=== PATIENT | female | born 1965 | race Two or more races ===

== ENCOUNTER 2023-01-29 13:36 | Emergency (ER) | payer OTHER ==
[~2023-01-29] VITALS: Ht 157.5 cm; Wt 81.0 kg
[2023-01-29 13:44] VITALS: TEMP 98.3
[2023-01-29] MEDS ORDERED: METF-1211 PO (13:47)
[2023-01-29] MEDS ORDERED: LOSA-382 PO (13:47)
[2023-01-29] MEDS ORDERED: HYDROCODONE/ACETAMINOPHEN 5-325 MG TABLET PO ONE (15:30)
[2023-01-29] MEDS ORDERED: LIDOCAINE 5% TRANSDERMAL PATCH TD ONE (15:30)
[2023-01-29 17:01] LABS: APPEARANCE,URINE CLEAR (CLEAR); BILIRUBIN,URINE NEGATIVE (NEGATIVE); COLOR,URINE YELLOW (YELLOW); GLUCOSE, URINE (UA) NEGATIVE (NEGATIVE); KETONES,URINE NEGATIVE (NEGATIVE); LEUKOCYTE ESTERASE ,URINE NEGATIVE (NEGATIVE); NITRATE,URINE NEGATIVE (NEGATIVE); OCCULT BLOOD,URINE NEGATIVE (NEGATIVE); PH,URINE 5.5 (5.0-8.0); PROTEIN,URINE TRACE mg/dL (NEGATIVE); SPECIFIC GRAVITIY, URINE 1.031 (1.003-1.030); UROBILINOGEN,URINE <=1.0 mg/dL (<=1.0)
[2023-01-29] MEDS ORDERED: LIDO700A15 TP (17:29)
[2023-01-29] MEDS ORDERED: CYCL-448 PO (17:29)
[2023-01-29 17:38] VITALS: BP 141/87; PULSE 61; RESP 19
== END 2023-01-29 17:48 | disposition home or self-care (01) ==
LOC: EMS 13:39
DX: M54.50 Low back pain, unspecified (principal); E11.9 Type 2 diabetes mellitus without complications; I10 Essential (primary) hypertension; Z98.890 Other specified postprocedural states
CPT/HCPCS: 72100; 81003; 96372; 99284

== ENCOUNTER 2023-12-02 18:59 | Emergency (ER) | payer OTHER ==
[~2023-12-02] VITALS: Ht 149.9 cm; Wt 70.0 kg
[~2023-12-02 18:59] MED LIST: CYCL-448 PO; LIDO700A15 TP; LOSA-382 PO; METF-1211 PO
[2023-12-02 19:03] VITALS: TEMP 98
[2023-12-02] MEDS: ONDANSETRON HCL 4 MG/2 ML VIAL IVP ONE (19:25)
[2023-12-02] MEDS: GLUCAGON,HUMAN RECOMBINANT 1 MG VIAL IVP ONE (19:25)
[2023-12-02 20:06] LABS: BASOPHILS % (AUTO) 0.5 % (0.0-2.0); EOSINOPHILS % (AUTO) 3.9 % (1.0-6.0); HEMATOCRIT 36.3 % (36-46); HEMOGLOBIN 12.2 g/dL (12.0-16.0); LYMPHOCYTES # (AUTO) 1.9 K/uL (1.0-4.8); LYMPHOCYTES % (AUTO) 19.9 % (22.0-44.0); MEAN CORPUSCULAR HEMOGLOBIN 29.7 pg (26.0-34.0); MEAN CORPUSCULAR HGB CONC 33.8 G/dL (31.0-37.0); MEAN CORPUSCULAR VOLUME 88 fL (80-100); MONOCYTES # (AUTO) 0.8 K/uL (0.1-1.0); MONOCYTES % (AUTO) 8.4 % (2.0-9.0); NEUTROPHILS # (AUTO) 6.5 K/uL (1.8-7.7); NEUTROPHILS % (AUTO) 67.3 % (40.0-70.0); PLATELET COUNT (AUTO) 338 K/uL (150-450); RED BLOOD CELL COUNT(AUTO) 4.12 MIL/uL (4.00-5.20); RED CELL DISTRIBUTION WIDTH 13.1 % (11.5-14.5); WHITE BLOOD COUNT (AUTO) 9.6 K/uL (4.5-11.0)
[2023-12-02 20:15] LABS: ANION GAP 11 mmol/L (8-16); CALCIUM, TOTAL 8.6 mg/dL (8.8-10.5); CARBON DIOXIDE 25 mmol/L (22-29); CHLORIDE 105 mmol/L (98-107); CREATININE 0.81 mg/dL (0.60-1.30); GLOMERULAR FILTR. RATE CALC > 60 mL/min (>60); GLUCOSE,RANDOM 170 mg/dL (70-110); SODIUM SERUM 141 mmol/L (136-145); UREA NITROGEN, BLOOD 22 mg/dL (7-18)
[2023-12-02 20:19] LABS: POTASSIUM 2.9 mmol/L (3.5-5.1)
[2023-12-02] MEDS: POTASSIUM CHLORIDE 20 MEQ ER TABLET PO ONE (21:02)
[2023-12-02 21:11] VITALS: BP 127/64; PULSE 67; RESP 14; O2SAT 95
== END 2023-12-02 21:31 | disposition home or self-care (01) ==
LOC: EMS 18:59
DX: T18.128A Food in esophagus causing other injury, initial encounter (principal); E87.6 Hypokalemia; E11.9 Type 2 diabetes mellitus without complications; I10 Essential (primary) hypertension; Z98.890 Other specified postprocedural states
CPT/HCPCS: 99284; 96374; 71045; 96375; 80048; 85025; 36415; 74018; J1610; J2405